=== PATIENT | male | born 1965 | race Caucasian/White ===

== ENCOUNTER 2021-01-29 00:31 | Emergency (ER) | payer OTHER, SELFPAY ==
--- NOTE | ~2021-01-29 | CT_ITS ---
EXAMINATION: CT CHEST WITHOUT CONTRAST CLINICAL INFORMATION: Suspected rib fractures COMPARISON: Chest radiograph 03/08/2017 TECHNIQUE: Multidetector volumetric CT imaging of the chest was done. Axial MIP volume rendering provided. Sagittal and coronal reformatted images were obtained. This CT examination was performed using dose optimization techniques as appropriate, variously including the following: *Automated exposure control *Adjustment of mA and/or kV according to patient size (this includes techniques or standardized protocols for targeted exams where dose is matched to indication/reason for exam; i.e. extremities or head) *Use of iterative reconstruction technique DLP: 434 mGy-cm FINDINGS: SALES ENGAGEMENT EXECUTIVE: Clips overlie the mediastinum. LUNGS: The central airways are patent. Pleural thickening at the lung apices. Mild centrilobular and paraseptal emphysema. No pneumothorax. No consolidation. MEDIASTINUM: Normal heart size. No pericardial effusion. No mediastinal lymphadenopathy. PLEURA: There is no pleural effusion. AXILLA: No lymphadenopathy. UPPER ABDOMEN: Hepatic steatosis. Contracted gallbladder. OSSEOUS STRUCTURES: Minimally displaced right posterolateral ninth and 10th rib fractures. Vertebral body height and alignment is maintained. The sternum is intact. CT/CT chest wo con IMPRESSION: Right posterolateral minimally displaced fractures of the ninth and 10th ribs. Mild emphysema.
[2021-01-29 00:37] VITALS: BP 137/87; PULSE 104; RESP 20; TEMP 36.4; O2SAT 96; BMI 31.5
--- NOTE | 2021-01-29 01:17 | ED_ITS ---
HPI - Fall General Chief Complaint: Fall Stated Complaint: Fall Time Seen by Provider: 01/29/21 01:09 Source: patient Mode of arrival: ambulatory Limitations: no limitations History of Present Illness HPI Narrative: Patient comes to emergency room complaining of right sided rib pain. Patient states patient had a mechanical fall, fell down wooden stairs. States he landed on his right side of the chest. Patient denies hitting his head and denies loss of consciousness. Patient denies hip pain, patient had bilateral hip replacement in 2019. Patient denies pain anywhere else other than his ribs, states pain is 10/10. Patient lying on his left side, states that if he does not move he has no pain, but once he moves or sits up, the pain is unbearable. Patient denies shortness of breath or chest pain. No abdominal pain. MD complaint: fall Related Data Previous Rx's Medication Instructions Recorded omeprazole 20 mg capsule,delayed 20 mg PO DAILY #90 cap 10/29/20 release oxycodone 5 mg PO Q6H PRN #14 tab 01/29/21 Allergies Allergy/AdvReac Type Severity Reaction Status Date / Time shellfish derived Allergy Unknown Hives Verified 09/30/20 09:27 Review of Systems Review of Systems: Constitutional : No Weight loss, No Fever, No Chills, No Night Sweats, No Fatigue, No Malaise ENT/Mouth : No Hearing loss, No Ear Pain, No Nasal Congestion, No Sinus Pain, No Hoarseness, No sore throat, No Rhinorrhea, No Swallowing Difficulty Eyes: No Eye Pain, No Swelling, No Redness, No Foreign Body, No Discharge, No Vision Changes Cardiovascular : No Chest Pain, No SOB, No Dyspnea on Exertion, No Orthopnea, No Edema, No Palpitations Respiratory : No Cough, No Sputum, No Wheezing, No Smoke Exposure, No Dyspnea Gastrointestinal : No Nausea, No Vomiting, No Diarrhea, No Constipation, No abdominal Pain, No Hematochezia, No Melena Genitourinary : no irregular bleeding, No Dysuria, No Urinary Frequency, No Hematuria, No Urinary Incontinence, No Urgency, No Flank Pain, No Urinary Flow Changes, No Hesitancy Musculoskeletal : Complaining of right-sided rib pain, No Myalgias, No Joint Swelling Skin : No Skin Lesions, No rash Neuro : No Weakness, No Numbness, No Paresthesias, No Loss of Consciousness, No Dizziness, No Headache Psych : No Anxiety/Panic, No Depression, No SI/HI/AH/VH, No Social Issues, Heme/Lymph: No Bruising, No Bleeding,No Lymphadenopathy Endocrine : No Polyuria, No Polydipsia, No Temperature Intolerance [facility] Past Medical History Medical History No acute medical problems Surgical History History of left hip replacement Family History Family History (Updated 09/30/20 @ 09:28 by Honey Browning [facility]) Father No problems noted. Mother No problems noted. Brother In good health Son In good health Daughter In good health Social History Social History Advance Directives: No Physical Exam Vital Signs: Vital Signs: Last Vital Signs Temp 97.6 F 01/29/21 00:37 Pulse 104 H 01/29/21 00:37 Resp 20 01/29/21 00:37 BP 137/87 01/29/21 00:37 Pulse Ox 96 01/29/21 00:37 Body Mass Index 31.5 Appearance: Alert. Oriented X3. Seems uncomfortable, in pain, lying in position on his left side Eyes: Pupils equal, round and reactive to light. ENT: Pharynx normal. Neck: Normal inspection. Neck supple. No lymph nodes noted. No crepitus CVS: Normal heart rate and rhythm. Pulses normal. Normal S1 and S2 Respiratory: No respiratory distress. Breath sounds normal. No Wheezing. No r ales , pain to palpation over the ribs lateral aspect on the right side Abdomen: Soft and nontender. No rigidity. No distention. No ecchymosis Skin: Skin warm and dry. Normal skin color. Normal skin turgor. Extremities: No lower extremity edema. No lower extremity edema. No Lacerations. No Rash Neuro: Oriented X 3. No motor deficit. No sensory deficit. Moving all extermities. No slurred speech. Course Course Course Narrative: I discussed the imaging with the patient, patient does have 2 nondisplaced rib fractures, 9th and 10th. Patient instructed to follow-up with his primary care physician. MDM - Fall Imaging Data Chest CT: Radiologist's impression: FINDINGS: POLICEWOMAN: Clips overlie the mediastinum. LUNGS: The central airways are patent. Pleural thickening at the lung apices. Mild centrilobular and paraseptal emphysema. No pneumothorax. No consolidation. MEDIASTINUM: Normal heart size. No pericardial effusion. No mediastinal lymphadenopathy. PLEURA: There is no pleural effusion. AXILLA: No lymphadenopathy. UPPER ABDOMEN: Hepatic steatosis. Contracted gallbladder. OSSEOUS STRUCTURES: Minimally displaced right posterolateral ninth and 10th rib fractures. Vertebral body height and alignment is maintained. The sternum is intact. CT/CT chest wo con IMPRESSION: Right posterolateral minimally displaced fractures of the ninth and 10th ribs. Mild emphysema. Discharge Plan Discharge Clinical Impression: Fracture, ribs Patient Disposition: Home, Self-Care Instructions: Rib Fracture (ED) Prescriptions: New oxycodone 5 mg tablet 5 mg PO Q6H PRN (Reason: pain) Qty: 14 RF: 0 No Action omeprazole 20 mg capsule,delayed release(DR/EC) 20 mg PO DAILY Qty: 90 RF: 3
[2021-01-29] MEDS: Ketorolac Tromethamine 60 MG/2 ML VIAL IM (01:23)
[2021-01-29] MEDS: oxyCODONE HCl Immed Release 5 MG TABLET 10 MG PO (03:03)
[2021-01-29 03:04] VITALS: BP 122/79; PULSE 96; RESP 16; O2SAT 96
== END 2021-01-29 03:07 | disposition home or self-care (01) ==
PROVIDERS: Emergency Provider Emergency Medicine; PCP Internal Medicine
DX: S22.41XA Multiple fractures of ribs, right side, initial encounter for closed fracture (principal); W10.8XXA Fall (on) (from) other stairs and steps, initial encounter; Y93.89 Activity, other specified; Y92.018 Other place in single-family (private) house as the place of occurrence of the external cause; Y99.9 Unspecified external cause status
CPT/HCPCS: 71250; 96372; 99284; J1885

== ENCOUNTER 2023-09-18 13:48 | Emergency (ER) | payer SELFPAY ==
[2023-09-18 13:55] VITALS: BP 137/89; PULSE 94; RESP 18; TEMP 36.6; O2SAT 97; BMI 27.3
--- NOTE | 2023-09-18 13:57 | ED_ITS ---
HPI - General Adult General Chief complaint: Psychiatric Symptoms Stated complaint: SI Time Seen by Provider: 09/18/23 13:57 Source: patient, EMS and police Mode of arrival: EMS Limitations: no limitations History of Present Illness HPI narrative: This is a 57-year-old male hx of schizophrenia, presenting to the emergency department on a [address] with police and EMS secondary to suicidal ideation, patient made a noose and wanted to hang himself today. Reports increasing life stressors and depression, reports trying to beat his addiction of alcohol has been a huge stressors lately. He did drink 2, 20 oz beers prior to arrival.Reports triggers. Denies hallucinations. No medical complaints today. Denies chest pain, shortness of breath, nausea, vomiting, abdominal pain. Denies previous attempts in the past peer Related Data Previous Rx's Medication Instructions Recorded omeprazole 20 mg capsule,delayed 20 mg PO DAILY #90 caps 10/29/20 release oxycodone 5 mg tablet 5 mg PO Q6H PRN pain #14 tabs 01/29/21 Allergies Allergy/AdvReac Type Severity Reaction Status Date / Time shellfish derived Allergy Unknown Hives Verified 09/30/20 09:27 Review of Systems 2 Review of Systems: Constitutional : No Weight loss, No Fever, No Chills, No Fatigue, No Malaise ENT/Mouth : No sore throat, No Rhinorrhea Eyes: No Eye Pain, No Swelling, No Redness Cardiovascular : No Chest Pain, No SOB, No Dyspnea on Exertion, No Orthopnea, No Edema, No Palpitations Respiratory : No Cough, No Sputum, No Wheezing Gastrointestinal : No Nausea, No Vomiting, No Diarrhea, No Constipation, No abdominal Pain, No Hematochezia, No Melena Genitourinary : No Dysuria, No Urinary Frequency, No Hematuria, Musculoskeletal : No joint pain, No Myalgias, No Joint Swelling Skin : No Skin Lesions, No rash Neuro : No Weakness, No Numbness, No Dizziness, No Headache Psych : No Anxiety/Panic, + Depression, + SI, No HI All other systems reviewed and are negative Yes all other systems are reviewed and are negative [facility] Past Medical History Attestation statement: The following information was validated with the patient. Source: old records reviewed and nursing notes reviewed Medical History No acute medical problems Surgical History History of left hip replacement Family History Family History Father No problems noted. Mother No problems noted. Brother In good health Son In good health Daughter In good health Social History Social History Advance Directives: No Advance Directives Information Provided: No Physical Exam ED Vital Signs: Vital Signs - 24 hr 09/18/23 13:55 Temperature 97.8 F Pulse Rate 94 Respiratory Rate 18 Blood Pressure 137/89 Pulse Oximetry 97 Oxygen Delivery Method Room Air BMI result Body Mass Index 27.3 vss Appearance: Alert.? Oriented X3.? No acute distress.? Head: Normocephalic, atraumatic, no step-offs or deformities Eyes: Pupils equal, round and reactive to light.? ENT: Pharynx normal.? Neck: Normal inspection.? Neck supple.? CVS: Normal heart rate and rhythm.? Pulses normal.? Respiratory: No respiratory distress.? Breath sounds normal.? Abdomen: Soft and nontender.? Skin: Skin warm and dry.? Normal skin color.? Normal skin turgor.? Extremities: No lower extremity edema.? No calf ttp. 5/5 strength to bilateral upper and lower extremities Neuro: Oriented X 3.? No motor deficit.? No sensory deficit. CN 2-12 intact Course Reevaluation(s) Reevaluation #1: CBC within normal limits. Chemistry unremarkable. UA no infection. Urine toxicology positive for marijuana. Ethanol level 260. Salicylates acetaminophen negative. At this time patient to be placed into observation to allow more time to be evaluated by behavioral health team. At time observation was started patient common cooperative no acute distress will continue to monitor. Time: 15:37 Medical Decision Making Medical Decision Making [facility] Narrative: [id number] 57-year-old male presents with suicidal ideation, made a noose with plan to hang himself Physical exam Concerns for acute depression with suicidal ideation versus bipolar versus schizophrenia. Will rule out metabolic derangements and electrolyte abnormalities although unlikely. Will also rule out polysubstance abuse and alcohol abuse. Medical clearance evaluation by care team Differential Diagnosis Differential Diagnoses: The differential diagnosis associated with the presentation includes Concerns for acute depression with suicidal ideation versus bipolar versus schizophrenia. Will rule out metabolic derangements and electrolyte abnormalities although unlikely. Will also rule out polysubstance abuse and alcohol abuse. Admission/Observation Consideration of admission/observation: Escalation of care including admission/observation considered Lab Data 09/18/23 14:28 09/18/23 14:28 Labs: Lab Results 09/18/23 09/18/23 Range/Units 14:20 14:28 WBC 5.6 (4.8-10.8) X10*3/uL RBC 4.76 (4.60-5.80) X10*6/uL Hgb 15.4 (14.0-18.0) g/dl Hct 44.3 (42.0-52.0) % MCV 93.1 (80.0-98.0) fL MCH 32.4 (27.0-33.0) pg MCHC 34.8 (31.0-36.0) g/dl RDW 13.2 (11.0-16.0) % Plt Count 186 (160-400) X10*3/uL MPV 9.5 (9.4-12.4) fL Immature Gran % (Auto) 0.2 (0.0-0.4) % Neut % (Auto) 52.6 (45-73) % Lymph % (Auto) 36.6 (20-40) % [place] % (Auto) 7.9 (2-11) % Eos % (Auto) 1.6 (0-4) % Baso % (Auto) 1.1 (0-2) % Lymph # (Auto) 2.0 (1.2-4.9) X10*3/uL [place] # (Auto) 0.4 (0.1-1.2) X10*3/uL Eos # (Auto) 0.1 (0.0-0.4) X10*3/uL Baso # (Auto) 0.1 (0.0-0.2) X10*3/uL Abs Immat Gran (auto) 0.01 (0.00-0.03) X10*3/uL Absolute Neuts (auto) 2.9 (2.0-8.3) x10*3/uL Absolute Nucleated RBC 0.000 (0.0-0.012) X10*3/uL Nucleated RBC % (auto) 0.0 (0.0-0.2) /100WBC Sodium 143 (135-145) mmol/L Potassium 3.7 (3.3-5.1) mmol/L Chloride 111 H (96-108) mmol/L Carbon Dioxide 19 L (22-29) mmol/L Anion Gap 17 (12-20) BUN 7 L (9-16) mg/dL Creatinine 0.64 (0.5-1.4) mg/dL Estim Creat Clear Calc 127.3 Estimated GFR > 60 Random Glucose 97 (60-115) mg/dL Calcium 9.1 (8.4-10.2) mg/dL Magnesium 2.2 (1.6-2.6) mg/dL Total Bilirubin 0.2 (0.0-1.0) mg/dL AST 29 (5-37) U/L ALT 15 (0-40) U/L Alkaline Phosphatase 70 (39-117) U/L Total Protein 7.7 (6.5-8.0) g/dL Albumin 4.0 (3.5-5.0) g/dL Urine Color Yellow Urine Appearance Clear Urine pH 5.0 (5.0-9.0) Ur Specific Marcus 1.010 (1.005-1.025) Urine Protein Negative (Neg-Trace) mg/dL Urine Glucose (UA) Negative (Negative) mg/dL Urine Ketones Negative (Negative) mg/dL Urine Blood Negative (Negative) Urine Nitrite Negative (Negative) Ur Leukocyte Esterase Negative (Negative) Salicylates < 5.0 L (15-30) mg/dL Urine Opiates Screen Not Detected (Not Detect) Urine Fentanyl Screen Not Detected (Not Detect) Acetaminophen < 3 (<30) mcg/mL Ur Barbiturates Screen Not Detected (Not Detect) Ur Phencyclidine Scrn Not Detected (Not Detect) Ur Amphetamines Screen Not Detected (Not Detect) U Benzodiazepines Scrn Not Detected (Not Detect) Urine Cocaine Screen Not Detected (Not Detect) U Marijuana (THC) Screen POSITIVE H (Not Detect) Ethyl Alcohol 260 mg/dL Critical Care Time Critical Care Time Critical Care Time: No Discharge Plan Discharge Clinical Impression: Suicidal ideation Patient Disposition: Still a Patient Prescriptions: No Action omeprazole 20 mg capsule,delayed release(DR/EC) 20 mg PO DAILY Qty: 90 3RF oxycodone 5 mg tablet 5 mg PO Q6H PRN (Reason: pain) Qty: 14 0RF Rx Instructions: Multiple rib fractures Interventions: [place]-Suicide Risk Severity Scale Last Done: 09/18/23 13:58
[2023-09-18 14:34] LABS: MANUAL DIFF FLAG NO
[2023-09-18 14:37] LABS: Appearance Urine Clear; Color Urine Yellow; Glucose Urine UA Negative (Negative); Leukocyte Esterase Urine Negative (Negative); Nitrite Urine Negative (Negative); Urine Blood Negative (Negative); Urine Ketones Negative (Negative); Urine Protein Negative (Neg-Trace)
[2023-09-18 14:40] LABS: Basophils Absolute Auto 0.1 X10*3/uL (0.0-0.2); Basophils Percent Auto 1.1 % (0-2); Eosinophils Absolute Auto 0.1 X10*3/uL (0.0-0.4); Eosinophils Percent Auto 1.6 % (0-4); Hematocrit 44.3 % (42.0-52.0); Hemoglobin 15.4 g/dl (14.0-18.0); Imm Gran Abs Auto 0.01 X10*3/uL (0.00-0.03); Imm Gran Pct Auto 0.2 % (0.0-0.4); Lymphocytes Percent Auto 36.6 % (20-40); Mean Corpuscular HGB Conc 34.8 g/dl (31.0-36.0); Mean Corpuscular Hemoglobin 32.4 pg (27.0-33.0); Mean Corpuscular Volume 93.1 fL (80.0-98.0); Mean Platelet Volume 9.5 fL (9.4-12.4); Monocytes Absolute Auto 0.4 X10*3/uL (0.1-1.2); Monocytes Percent Auto 7.9 % (2-11); Neutrophils Absolute Auto 2.9 x10*3/uL (2.0-8.3); Neutrophils Percent Auto 52.6 % (45-73); Platelet Count 186 X10*3/uL (160-400); Red Blood Count 4.76 X10*6/uL (4.60-5.80); Red Cell Distribution Width 13.2 % (11.0-16.0); White Blood Count 5.6 X10*3/uL (4.8-10.8)
[2023-09-18 14:44] LABS: Amphetamine Screen Urine Not Detected (Not Detect); Barbiturates, Urine Not Detected (Not Detect); Benzodiazepines Screen Urine Not Detected (Not Detect); Cannabinoid Screen Urine POSITIVE (Not Detect); Cocaine Screen Urine Not Detected (Not Detect); Fentanyl, urine Not Detected (Not Detect); Opiate Screen Urine Not Detected (Not Detect); Phencyclidine Screen Urine Not Detected (Not Detect)
[2023-09-18 14:53] LABS: Alanine Aminotransferase 15 U/L (0-40); Alkaline Phosphatase 70 U/L (39-117); Anion Gap 17 (12-20); Aspartate Amino Transferase 29 U/L (5-37); Bilirubin Total 0.2 mg/dL (0.0-1.0); Blood Urea Nitrogen 7 mg/dL (9-16); Calcium 9.1 mg/dL (8.4-10.2); Carbon Dioxide 19 mmol/L (22-29); Chloride 111 mmol/L (96-108); Creatinine Clr Calc Pharmacy 127.3; Estimated Glomerular Filt Rate > 60; Ethanol 260 mg/dL; Glucose Random 97 mg/dL (60-115); Magnesium 2.2 mg/dL (1.6-2.6); Potassium 3.7 mmol/L (3.3-5.1); Sodium 143 mmol/L (135-145); Total Protein 7.7 g/dL (6.5-8.0)
[2023-09-18 15:03] LABS: Acetaminophen LAB < 3 mcg/mL (<30); Salicylate < 5.0 mg/dL (15-30)
--- NOTE | 2023-09-18 16:14 | PC.NURSE ---
Ambulating with steady gait on unit, asking when he will be seen by someone from care team. Care team called, came out to speak with patient. Patient aware that he will be seen in the morning, resting comfortably in bed at this time
--- NOTE | 2023-09-18 19:18 | PC.NURSE ---
patient appears to remain at rest, respirations are even and unlabored patient appears in no distress.
[2023-09-18] MEDS: Albuterol Sulfate 90 MCG 8 GM INHALER 2 PUFF INHALE (20:25)
[2023-09-18 20:41] VITALS: BP 118/72; PULSE 103; RESP 20; TEMP 36.9
[2023-09-19 06:15] VITALS: BP 140/102; PULSE 87; RESP 17; TEMP 36.7; O2SAT 97
[2023-09-19] MEDS: Albuterol Sulfate 90 MCG 8 GM INHALER 2 PUFF INHALE (08:02)
[2023-09-19 14:11] VITALS: BP 119/82; PULSE 92; RESP 18; TEMP 36.9; O2SAT 95
--- NOTE | 2023-09-19 15:04 | PC.NURSE ---
Xavier was OOB this shift and was visible in the milieu. No scheduled medications. Denies SI/HI/AVH. Advocating for discharge. Xavier is being discharged with a LYFT ride. Discharge paperwork signed.
== END 2023-09-19 15:22 | disposition home or self-care (01) ==
PROVIDERS: Physician Assistant; Emergency Provider Emergency Medicine
DX: R45.851 Suicidal ideations (principal); F20.9 Schizophrenia, unspecified; Z79.899 Other long term (current) drug therapy
CPT/HCPCS: 36415; 80053; 80143; 80179; 80307; 81003; 83735; 85025; 99284; S9485